=== PATIENT | male | born 1990 | race Caucasian/White ===

== ENCOUNTER 2017-10-07 23:48 | Emergency (ER) | payer MEDICAID ==
[~2017-10-07] VITALS: Ht 185.4 cm; Wt 72.7 kg
[2017-10-07 23:57] VITALS: BP 114/68
[2017-10-08] MEDS ORDERED: CEPH-572 PO (00:34)
[2017-10-08] MEDS ORDERED: SULF1TAB49 PO (00:34)
== END 2017-10-08 00:42 | disposition left against medical advice (07) ==
LOC: ER 23:49
DX: L03.116 Cellulitis of left lower limb (principal); F11.10 Opioid abuse, uncomplicated; F15.10 Other stimulant abuse, uncomplicated; F12.10 Cannabis abuse, uncomplicated; F17.200 Nicotine dependence, unspecified, uncomplicated; Z79.899 Other long term (current) drug therapy
CPT/HCPCS: 99283; J7030

== ENCOUNTER 2017-10-21 03:59 | Emergency (ER) | payer MEDICAID ==
[2017-10-21 04:04] VITALS: BP 121/75
== END 2017-10-21 04:42 ==
LOC: ER 03:59
DX: Z02.89 Encounter for other administrative examinations (principal); I38 Endocarditis, valve unspecified; F17.200 Nicotine dependence, unspecified, uncomplicated; F12.10 Cannabis abuse, uncomplicated; F15.10 Other stimulant abuse, uncomplicated; F11.10 Opioid abuse, uncomplicated
CPT/HCPCS: 99283

== ENCOUNTER 2023-07-06 10:38 | Day surgery (SDC) | payer BC, MEDICAID ==
[~2023-07-06] VITALS: Ht 188 cm; Wt 99.0 kg
[2023-07-06] VITALS (10 sets, daily range): BP systolic 105–113; BP diastolic 66–75; PULSE 78–92; RESP 11–17; TEMP 98.1; O2SAT 94–99
[2023-07-06] MEDS: normal saline 1000ml 1,000 ML IV SCH (11:00)
[2023-07-06] MEDS ORDERED: ASPI-1397 PO (11:06)
[2023-07-06] MEDS ORDERED: NICO-631 TOP (11:06)
[2023-07-06] MEDS: fentaNYL/PF 50MCG/1 ML 2ML syringe IV ONE (13:05)
[2023-07-06] MEDS: MIDAZolam 1mg/ml 10ml vial IV ONE (13:05)
== END 2023-07-06 14:20 | disposition home or self-care (01) ==
LOC: SSTAY O 10:38
PROVIDERS: ATTEND Student in an Organized Health Care Education/Training Program
DX: I08.0 Rheumatic disorders of both mitral and aortic valves (principal); Z95.2 Presence of prosthetic heart valve; Z79.899 Other long term (current) drug therapy
CPT/HCPCS: 93312; 93325; 94760; J2250; J3010; J7030; A4620

== ENCOUNTER 2024-12-08 12:17 | Outpatient (CLI) | payer BC ==
[~2024-12-08 12:17] MED LIST: ASPI-1397 PO; NICO-631 TOP
[2024-12-08] MEDS ORDERED: METO50TA7 PO (13:25)
[2024-12-08] MEDS ORDERED: FLUD0.1T PO (13:25)
--- NOTE | 2024-12-08 15:57 | RADIOLOGY REPORT ---
History: PERICARDITIS;ENDOCARDITIS;MITRAL STENOSIS Comparison: None TECHNIQUE: Volumetric data acquisition of chest was obtained following intravenous administration of 100 ml omni 350 contrast without any reported adverse effects. Arterial phase imaging was performed. Axial images were obtained and additional sagittal and coronal images were reformatted. 3D/MIP images were performed and reviewed for reporting. Radiation dose Information: CT Dose: CTDI volume is 61 mGy. Dose-length product is 764 mGy*cm Findings: Vascular: Aortic measurements: Sinus of valsalva 40 mm, ST junction 33 mm, ascending aorta 38 mm, d escending aorta 21 mm, aortic hiatus 19 mm. Dilated aortic root. There is normal caliber of thoracic aorta without evidence of aortic dissection, intramural hematoma or aneurysm. Visualized supra-aortic arteries are patent without a focal stenosi s or aneurysm. Prosthetic aortic and mitral valves. Chest: Pulmonary Arteries: There are no filling defects within main pulmonary arteries. Main pulmonar y artery is dilated measuring up to 46 mm. Lungs: Patchy ground-glass opacities in the bilateral lower lungs. Atelectasis and scarring in the romie ng bases. Lymph Nodes: Mediastinal and bilateral hilar lymphadenopathy.. Lower Neck: Visualized portions of the thyroid gland are unremarkable. Mediastinum: Mild cardiomegaly. There is no pericardial effusion. Musculoskeletal: No aggressive focal bony lesions, acute fractures or dislocation. Upper Abdomen: Spleen is small. IMPRESSION: 1. No evidence of aortic aneurysm, dissection, or intramural hematoma. Prosthetic aortic valve. Dila cody aortic root. Dilated main pulmonary artery suggesting pulmonary arterial hypertension. Cardiomega ly. 2. Patchy ground-glass opacities in the lung bases could be infectious /inflammatory. Mediastinal an d hilar lymphadenopathy. Clinical correlation and continued follow-up is recommended. 3. All CT scans at this medical facility are performed using dose modulation techniques as appropriat e to a performed exam including the following: Automated exposure control was utilized; Adjustment of the MA And/or KV according to patient size; And use of iterative reconstruction technique. HS:Y
== END 2024-12-08 23:59 | disposition home or self-care (01) ==
LOC: RAD 12:17
PROVIDERS: ATTEND Thoracic Surgery (Cardiothoracic Vascular Surgery)
DX: Z01.818 Encounter for other preprocedural examination (principal); I27.20 Pulmonary hypertension, unspecified; I30.0 Acute nonspecific idiopathic pericarditis; I39 Endocarditis and heart valve disorders in diseases classified elsewhere; I34.2 Nonrheumatic mitral (valve) stenosis; Z95.2 Presence of prosthetic heart valve; I51.7 Cardiomegaly; R59.0 Localized enlarged lymph nodes; J98.11 Atelectasis; J81.1 Chronic pulmonary edema
CPT/HCPCS: 71275; Q9967

== ENCOUNTER 2024-12-08 12:31 | Outpatient (CLI) | payer BC ==
[2024-12-08] MEDS ORDERED: METO50TA7 PO (13:25)
[2024-12-08] MEDS ORDERED: FLUD0.1T PO (13:25)
--- NOTE | 2024-12-08 14:28 | ELECTROCARDIOGRAPH REPORT ---
[facility] Test Date: 2024-12-08 Test Time: 14:23:37 Pat Name: ASHLEY HESTER Department: PRE/OP CARDIOLOGY Room: Gender: M Welfare Service Aide: JEMMA : 1990 Requested By: JOSE CASSIDY Order Number: [id number] Reading MD: Dr. ASHA Vargas Measurements Intervals [place] Rate: 65 P: 75 [place]: 249 QRS: -6 QRSD: 99 T: 79 QT: 434 QTc: 452 Interpretive Statements Sinus rhythm Prolonged [place] interval Biatrial enlargement RSR' in V1 or V2, probably normal variant Abnrm T, consider ischemia, anterolateral lds Electronically Signed On 12-09-2024 12:31:[address] ASHA Vargas Please click the below link to view image of tracing.
[2024-12-08 14:39] LABS: MEAN PLATELET VOLUME 7.8 FL (7.4-10.4); PRE OP HEMATOCRIT 46.3 % (42.0-52.0); PRE OP HEMOGLOBIN 15.5 g/dL (14.0-17.9); PRE OP PLATELET COUNT 346 X10'3 (140-440); PRE OP WHITE BLOOD COUNT 7.0 10'3 (4.8-10.8); RED CELL DISTRIBUTION WIDTH 14.2 % (11.5-14.5)
[2024-12-08 14:46] LABS: LEUKOCYTE ESTERASE ,URINE NEGATIVE (Neg); NITRITES, URINE NEGATIVE (Neg); OCCULT BLOOD,URINE NEGATIVE (Neg)
[2024-12-08 14:49] LABS: UA COLLECTION TYPE NON-SPECIFIED
--- NOTE | 2024-12-08 14:49 | RADIOLOGY REPORT ---
DI CHEST,TWO VIEWS, HISTORY: PREOP COMPARISON: None None TECHNICAL DATA: 2 view of the chest was obtained. FINDINGS: Lines and tubes: Prosthetic heart valves. Cardiomediastinal silhouette: Prominent Pulmonary vasculature: Prominent Lung expansion: normal Lung airspace: Perihilar opacities Lung interstitium: Prominent Pleura: normal Pneumothorax: no Bones: Unremarkable Other: no IMPRESSION: Mild pulmonary edema.
[2024-12-08 14:51] LABS: PRE OP INR 1.1 INR; PRE OP PARTIAL THROMB. TIME 30.0 SECONDS (22-32); PRE OP PROTIME 11.2 SECONDS (9.0-12.0)
[2024-12-08 14:52] LABS: CREATININE 0.85 MG/DL (0.60-1.10); PRE OP ALT 40 U/L (30-65); PRE OP ANION GAP 9 (8-16); PRE OP AST 22 U/L (10-37); PRE OP BILIRUB, TOTAL 0.8 MG/DL (0.0-1.0); PRE OP GLUCOSE 89 MG/DL (70-104); PRE OP POTASSIUM 4.2 MMOL/L (3.4-5.1); PRE OP SODIUM 139 MMOL/L (135-145); TOTAL CARBON DIOXIDE 24.4 MMOL/L (24-32); eGFR > 90 ML/MIN
--- NOTE | 2024-12-08 14:52 | VASCULAR REPORT ---
Carotid Duplex Date: 12/08/2024 01:34 PM Clinical History: Preop Comparison: None Technique: Duplex Doppler evaluation of the extracranial carotid and vertebral arteries including col or Doppler and spectral/pulsed waveform analysis was performed. Findings: PSV in the right CCA measures 82 cm/s. PSV in the right ICA measures 54 cm/s. The right ICA/CCA ratio is 0.7. PSV in the left CCA measures 78 cm/s. PSV in the left ICA measures 45 cm/s. The left ICA/CCA ratio is 0.7 Both vertebral arteries demonstrate antegrade flow within normal limits. IMPRESSION: 1. No hemodynamically significant stenosis.
--- NOTE | 2024-12-08 14:54 | VASCULAR REPORT ---
PROCEDURE: [facility] VL VENOUS Exam Date: 12/08/2024 01:48 PM History: Pain Findings: Technique: Duplex Doppler evaluation of the superficial veins of the right and left lower extremities was perfor med including color Doppler and spectral/pulsed waveform analysis. Findings: Measurements of the lower extremity superficial veins in millimeters (mm) are provided below. RIGHT GREAT SAPHENOUS VEIN (GSV) in mm: 3.6 at proximal thigh, patent. 4.0 at mid thigh, patent. 3.0 at distal thigh, patent. 3.0 at proximal calf, patent. 1.8 at mid calf, patent. 4.0 at distal calf, patent. LEFT GREAT SAPHENOUS VEIN (GSV) in mm: 3.6 at proximal thigh, patent. 4.1 at mid thigh, patent. 4.5 at distal thigh, patent. 3.1 at proximal calf, patent. 3.5 at mid calf, patent. 3.9 at distal calf, patent. Impression: Lower extremity superficial venous mapping as detailed above.
[2024-12-08 15:16] LABS: ABG BASE EXCESS -1.4 mmol/L (-2.0-3.0); ABG HCO3 21.8 mmol/L (21.0-28.0); ABG OXYGEN SATURATION 96.1 % (94.0-98.0); ABG PCO2 (T) 33.2 mmHg (35.0-48.0); ABG PH (T) 7.436 (7.350-7.450); ABG PO2 (T) 84.3 mmHg (83.0-108.0); ALLEN'S TEST POSITIVE; FCOHb 0.2 % (0.5-1.5); FHHb 3.9 % (0.0-5.0); FIO2 21.0 mmHg/%; FMetHb 0.0 % (0.0-1.5); FO2Hb 95.9 % (94.0-98.0); MODE ROOM AIR; PATIENT TEMPERATURE 37.0; TOTAL HEMOGLOBIN 16.7 G/dl (13.5-17.5)
[2024-12-08 15:59] VITALS: PULSE 72; RESP 16; O2SAT 96
--- NOTE | 2024-12-12 14:16 | PROCEDURE NOTE - Respiratory ---
Procedure Note-Respiratory Providers to CC Copies To 1: JOSE CASSIDY MD; GODFREY RILEY MD Procedure Name: This is a spirometry study dated December 08, 2024. Spirometry measurements: There is substantial reduction in both the forced vital capacity and the FEV1 measurements. The FEV1 ratio remains normal. Some of the flow rates are somewhat reduced. Bronchodilator was not administered as part of the study. Conclusion: This study is abnormal. There is evidence for [id number] obstructive ventilatory defect. In addition there is evidence for mild-to-mo derate restrictive ventilatory defect. It is strongly recommended that the patient abstain from cigarette smoking. We have no previous studies for comparison. A blood gas was drawn from this patient while the patient was breathing room air. The blood pH is normal. The pCO2 is borderline reduced. The room air PO2 level remains within the normal range at 84 mmHg. LUCIANA EUGENE MD Dec 12, 2024 14:16
== END 2024-12-08 23:59 | disposition home or self-care (01) ==
LOC: LAB 12:31 → EDSTATUS 12-15 08:30
PROVIDERS: ATTEND Thoracic Surgery (Cardiothoracic Vascular Surgery)
DX: Z01.818 Encounter for other preprocedural examination (principal); I30.0 Acute nonspecific idiopathic pericarditis; J81.1 Chronic pulmonary edema; I39 Endocarditis and heart valve disorders in diseases classified elsewhere; I34.2 Nonrheumatic mitral (valve) stenosis; Z95.2 Presence of prosthetic heart valve
CPT/HCPCS: 36415; 36600; 71046; 71275; 80053; 81003; 82803; 83036; 85018; 85025; 85610; 85730; 86885; 86900; 86901; 93005; 93880; 93970; 94010; 94760; Q9967; 86920

== ENCOUNTER 2025-02-14 13:00 | Outpatient (CLI) | payer BC ==
[~2025-02-14 13:00] MED LIST changes: -ASPI-1397 PO; +ASPI81TA53 PO; +FLUD0.1T PO; +HYDR-3972 PO; +NICO-630 TD; -NICO-631 TOP; +WARF-55 PO
[2025-02-15 11:14] LABS: INR 2.4 INR
[2025-02-16] MEDS ORDERED: POTA-207 PO (11:48)
== END 2025-02-14 23:59 | disposition home or self-care (01) ==
LOC: LAB 13:00
PROVIDERS: ATTEND Thoracic Surgery (Cardiothoracic Vascular Surgery)
DX: Z95.2 Presence of prosthetic heart valve (principal); Y83.1 Surgical operation with implant of artificial internal device as the cause of abnormal reaction of the patient, or of later complication, without mention of misadventure at the time of the procedure
CPT/HCPCS: 36415; 85610